=== PATIENT | male | born 1960 | race African-American/Black ===

== ENCOUNTER 2020-09-23 17:03 | Emergency (ER) | payer MEDICARE, OTHER ==
[~2020-09-23] VITALS: Ht 175.3 cm; Wt 99.8 kg
[2020-09-23] MEDS ORDERED: DIATRIZOATE MEGL/DIATRIZOA SOD 30 ML BTL PO ONE (18:44)
== END 2020-09-23 20:59 ==
LOC: ER 17:15
DX: Z43.1 Encounter for attention to gastrostomy (principal); N18.9 Chronic kidney disease, unspecified; F20.9 Schizophrenia, unspecified
CPT/HCPCS: 74018; 99283